=== PATIENT | male | born 1980 | race Two or more races ===

== ENCOUNTER 2023-11-30 19:28 | Emergency (ER) | payer SELFPAY ==
[~2023-11-30] VITALS: Ht 175.3 cm; Wt 181.5 kg
[2023-11-30 20:30] VITALS: BP 0/0; PULSE 0; RESP 0; TEMP 96.2; O2SAT 0
== END 2023-11-30 19:46 ==
LOC: EDBD 19:28 → ER 19:28
DX: I46.9 Cardiac arrest, cause unspecified (principal); I10 Essential (primary) hypertension
CPT/HCPCS: 31500; 92950